=== PATIENT | male | born 1960 | race Caucasian/White ===

== ENCOUNTER 2022-06-02 07:23 | Emergency (ER) | payer SELFPAY ==
[~2022-06-02] VITALS: Ht 177.8 cm; Wt 82.0 kg
[2022-06-02 07:32] VITALS: BP 120/70
[2022-06-02] MEDS ORDERED: ACETAMINOPHEN 325MG TABLET PO STA (08:06)
[2022-06-02] MEDS ORDERED: HALOPERIDOL LACTATE 5MG/ML VIAL IM ONE (08:15)
[2022-06-02] MEDS ORDERED: NITROGLYCERIN 0.4MG TABLET SL SL PRN (08:15)
[2022-06-02] MEDS ORDERED: DIPHENHYDRAMINE 50MG/ML VIAL IM ONE (08:15)
[2022-06-02] MEDS ORDERED: DIAZEPAM 5 MG/ML 2ML CPJ IM ONE (09:00)
== END 2022-06-02 14:52 | disposition left against medical advice (07) ==
LOC: ER 07:23
DX: M54.9 Dorsalgia, unspecified (principal); R45.1 Restlessness and agitation; R41.82 Altered mental status, unspecified
CPT/HCPCS: 70450; 71045; 96372; 99284; J1200; J1630; J3360